=== PATIENT | male | born 1995 | race Caucasian/White ===

== ENCOUNTER 2016-03-16 22:58 | Emergency (ER) | payer OTHER ==
[2016-03-16 23:10] VITALS: BP 112/73; PULSE 96; TEMP 98.3; BMI 19.3
--- NOTE | 2016-03-16 23:58 | PDOC ---
History of Present Illness - General Chief Complaint: Injury Stated Complaint: RAN INTO DOOR/LACERATION Time Seen by Provider: 03/16/16 23:00 History Source: Patient Exam Limitations: No Limitations - History of Present Illness Initial Comments: 03/16/16 23:53 20 Y NO PMHX, RT HHANDED. LACERATION ON LT HAND PLAYING bb CRASHING INTO METAL DOOR. NO OTHER INJURY Timing/Duration: reports: just prior to arrival Past History - Past Medical History Allergies/Adverse Reactions: Allergies Allergy/AdvReac Type Severity Reaction Status Date / Time No Known Allergies Allergy Verified 03/16/16 23:00 Home Medications: Ambulatory Orders NK [No Known Home Medication] 03/16/16 Other medical history: DENIES - Immunization History Immunization Up to Date: Yes - Psycho/Social/Smoking Cessation Hx Anxiety: No Suicidal Ideation: No Smoking History: Never smoked Have you smoked in the past 12 months: No Information on smoking cessation initiated: No Hx Alcohol Use: No Drug/Substance Use Hx: No Substance Use Type: None Review of Systems - Review of Systems Able to Perform ROS?: Yes Is the patient limited Guinean proficient: No Constitutional: No: Symptoms Reported HEENTM: No: Symptoms Reported Respiratory: No: Symptoms reported Cardiac (ROS): No: Symptoms Reported ABD/GI: No: Symptoms Reported : No: Symptoms Reported Musculoskeletal: No: Symptoms Reported Integumentary: Yes: Symptoms Reported, See HPI All Other Systems: Reviewed and Negative *Physical Exam - Vital Signs Last Vital Signs Temp Pulse Resp BP Pulse Ox 98.3 F 96 H 16 112/73 96 03/16/16 23:03 03/16/16 23:03 03/16/16 23:03 03/16/16 23:03 03/16/16 23:03 - Physical Exam General Appearance: Yes: Nourished, Appropriately Dressed. No: Apparent Distress Neck: positive: Supple Respiratory/Chest: negative: Respiratory Distress Cardiovascular: positive: Regular Rhythm, Regular Rate Extremity: positive: Normal Capillary Refill, Normal Inspection, Normal Range of Motion Integumentary: positive: Normal Color, Other (2 CM SUP LAC LT HAND BASE OF 4TH AND 5TH DISTAL TO HYPOTENAR EMINENCE. NO NTV INJURY) Neurologic: positive: Fully Oriented, Alert, Normal Mood/Affect, Normal Response , Motor Strength 5/5 Procedures - Laceration/Wound Repair Left Volar Hand Wound Length: to 2.5 cm Wound Explored: clean Wound's Depth, Shape: superficial, irregular Irrigated w/ Saline: Yes Anesthesia: 1% Lidocaine Wound Debrided: minimal Wound Repaired With: Sutures Suture Size/Type: 4:0, nylon Number of Sutures: 7 Layer Closure: No Sterile Dressing Applied: Yes ED Treatment Course - RADIOLOGY Radiology Studies Ordered: Category Date Time Status HAND- LEFT [RAD] Stat Radiology 03/16/16 23:01 Completed *DC/Admit/Observation/Transfer Diagnosis at time of Disposition: Laceration of hand Qualifiers: Encounter type: initial encounter Laterality: left Qualified Code(s): S61.412A - Laceration without foreign body of left hand, initial encounter - Discharge Dispostion Disposition: HOME Condition at time of disposition: Stable Admit: No - Patient Instructions Additional Instructions: KEEP WOUND DRY FOR 48 HOURS. AFTER, REGULAR SOAP AND WATER REMOVE STITCHES IN 10 DAYS BUT HAVE YOUR DOCTOR CHECK YOUR WOUND IN TWO DAYS IBUPROFEN 800 MG 3 TIMES A DAY FOR 3 DAYS RETURN IF BLEEDING, SWELLING, REDNESS, PUS, OR SEVERE PAIN
[2016-03-17] MEDS ORDERED: IBUPROFEN 400 MG TABLET (FP) PO ONE ×2 (00:02)
== END 2016-03-17 00:04 | disposition home or self-care (01) ==
LOC: FER 22:58
PROC: 0HQGXZZ Repair Left Hand Skin, External Approach (ICD-10-PCS; principal; 2016-03-16)
DX: S61.412A Laceration without foreign body of left hand, initial encounter (principal); W22.03XA Walked into furniture, initial encounter; Y93.9 Activity, unspecified; Y92.9 Unspecified place or not applicable
CPT/HCPCS: 73130-TC-LT; 99281-25